=== PATIENT | female | born 1985 | race Hispanic/Latino ===

== ENCOUNTER 2022-05-12 22:05 | Emergency (ER) | payer OTHER ==
--- OUTSIDE RECORDS SUMMARY | 2022-05-12 22:08 | XMS REPORT | Continuity of Care Document ---
:1985 Author Organization [facility] t Address [address] [place] [place] [address] Care Team Providers Name Role Phone Unknown, Physician Primary Care Physician Unavailable LOLITA CORRALES Attending Clinician Unavailable Nedra NULL, Kari Attending Clinician Unavailable LOLITA CORRALES Attending Clinician Unavailable Nancy Hinojosa MA Attending Clinician Unavailable Zenaida Dunbar MA Attending Clinician Unavailable RADIOLOGY Attending Clinician Unavailable ADITYA PATEL Attending Clinician Unavailable LOLITA CORRALES Admitting Clinician Unavailable Payers Payer Name Policy Type Policy Number Effective Date Expiration Date S brittany [facility] [id number] 2021 00:00:00 [facility] [id number] 2020 00:00:00 [employer] O [id number] 2015 2020 00:00:00 00:00:00 Problems This patient has no known problems. Allergies, Adverse Reactions, Alerts Allergy Allergy Status Severity Reaction(s) Onset Inactive Treating Comm ents Source Name Type Date Date Clinician NO KNOWN Drug Active Univers ALLERGIE Class [facility] of [facility] Social History Social Habit Start Date Stop Date Quantity Comments Source History of tobacco Light tobacco [facility] use smoker Exposure to 2022-02-16 2022-02-26 Not sure [facility] SARS-CoV-2 (event) 00:00:00 08:55:00 Tobacco use and 2021-03-20 2021-03-20 User of smokeless [place] [facility] exposure 00:00:00 00:00:00 tobacco Alcohol intake 2021-03-20 2021-03-20 Ex-drinker [facility] 00:00:00 00:00:00 (finding) Sex Ass[birth year] At [birth year] [place] [facility] 00:00:00 00:00:00 Smoking Status Start Date Stop Date Source Light tobacco smoker 2021-03-20 00:00:00 [facility] Medications Ordered Filled Start Stop Current Ordering Indication Dosage Frequency Signature Comments Components Source Medication Medication Date Date Medication? Clinician (SIG) Name Name ondansetron Yes 4mg Q.5D Take 4 mg U T (Zofran) 4 3-03 by mouth 2 [facility]a [facility] MG tablet 00:00: (two) 00 times a day. FOR 5 DAYS ondansetron Yes 4mg Q.5D Take 4 mg U T (Zofran) 4 3-03 by mouth 2 [facility] MG tablet 00:00: (two) 00 times a day. FOR 5 DAYS ondansetron Yes 4mg Q.5D Take 4 mg U T (Zofran) 4 3-03 by mouth 2 [facility]a [facility] MG tablet 00:00: (two) 00 times a day. FOR 5 DAYS ondansetron Yes 4mg Q.5D Take 4 mg U T (Zofran) 4 3-03 by mouth 2 [facility]a lth MG tablet 00:00: (two) 00 times a day. FOR 5 DAYS lubiproston Yes 8ug Q.5D Take 8 mcg UT e (Amitiza) 2-14 by mouth 2 He alth 8 MCG 00:00: (two) capsule 00 times a day. lubiproston 2021-2021- No 8ug Q.5D Take 8 mcg UT e (Amitiza) 2-14 04-21 by mouth 2 H ealth 8 MCG 00:00: 00:00 (two) capsule 00 :00 times a day. ALPRAZolam Yes .5mg Q.5D Take 0.5 UT (Xanax) 0.5 9-29 mg by Health MG tablet 00:00: mouth 2 00 (two) times a day. ALPRAZolam 2021-0 Yes .5mg Q.5D Take 0.5 UT (Xanax) 0.5 9-29 mg by Health MG tablet 00:00: mouth 2 00 (two) times a day. ALPRAZolam 2021-0 Yes .5mg Q.5D Take 0.5 UT (Xanax) 0.5 9-29 mg by Health MG tablet 00:00: mouth 2 00 (two) times a day. ALPRAZolam 2021-0 Yes .5mg Q.5D Take 0.5 UT (Xanax) 0.5 9-29 mg by Health MG tablet 00:00: mouth 2 00 (two) times a day. ALPRAZolam 2021-0 Yes .5mg Q.5D Take 0.5 UT (Xanax) 0.5 9-29 mg by Health MG tablet 00:00: mouth 2 00 (two) times a day. ALPRAZolam 1-0 Yes .5mg Q.5D Take 0.5 UT (Xanax) 0.5 9-29 mg by Health MG tablet 00:00: mouth 2 00 (two) times a day. Linzess 145 2020-0 Yes 1{capsu Take 1 U T MCG capsule 9-20 le} capsule by He alth 00:00: mouth 1 00 (one) time each day before breakfast. 30 MINUTES BEFORE BREAKFAST Linzess 145 1-0 Yes 1{capsu Take 1 U T MCG capsule 9-20 le} capsule by alth 00:00: mouth 1 00 (one) time each day before breakfast. 30 MINUTES BEFORE BREAKFAST Linzess 145 2020-0 Yes 1{capsu Take 1 U T MCG capsule 9-20 le} capsule by He alth 00:00: mouth 1 00 (one) time each day before breakfast. 30 MINUTES BEFORE BREAKFAST Linzess 145 2021-0 2022- No 1{capsu Take 1 UT MCG capsule 9-20 04-21 le} capsule by [facility] 00:00: 00:00 mouth 1 00 :00 (one) time each day before breakfast. 30 MINUTES BEFORE BREAKFAST [place] BLOWER Thyroid 1-0 Yes 15mg Take 15 mg U T 15 MG 8-14 by mouth 1 Health tablet 00:00: (one) time 00 each day in the morning. spironolact 2021-0 Yes 50mg Take 50 mg UT one 8-14 by mouth Health (Aldactone) 00:00: every 50 MG 00 night. tablet [place] BLOWER Thyroid 2021-0 Yes 15mg Take 15 mg U T 15 MG 8-14 by mouth 1 Health tablet 00:00: (one) time 00 each day in the morning. spironolact 2021-0 Yes 50mg Take 50 mg UT one 8-14 by mouth Health (Aldactone) 00:00: every 50 MG 00 night. tablet [place] BLOWER Thyroid 2021-0 Yes 15mg Take 15 mg U T 15 MG 8-14 by mouth 1 Health tablet 00:00: (one) time 00 each day in the morning. spironolact 2021-0 Yes 50mg Take 50 mg UT one 8-14 by mouth Health (Aldactone) 00:00: every 50 MG 00 night. tablet [place]OWER Thyroid 2021-0 Yes 15mg Take 15 mg U T 15 MG 8-14 by mouth 1 Health tablet 00:00: (one) time 00 each day in the morning. spironolact 2021-0 Yes 50mg Take 50 mg UT one 8-14 by mouth Health (Aldactone) 00:00: every 50 MG 00 night. tablet [place]OWER Thyroid 2021-0 Yes 15mg Take 15 mg U T 15 MG 8-14 by mouth 1 Health tablet 00:00: (one) time 00 each day in the morning. spironolact 2021-0 Yes 50mg Take 50 mg UT one 8-14 by mouth Health (Aldactone) 00:00: every 50 MG 00 night. tablet [place]OWER Thyroid 2021-0 Yes 15mg Take 15 mg U T 15 MG 8-14 by mouth 1 Health tablet 00:00: (one) time 00 each day in the morning. spironolact 2021-0 Yes 50mg Take 50 mg UT one 8-14 by mouth Health (Aldactone) 00:00: every 50 MG 00 night. tablet pantoprazol 2021-0 Yes 40mg QD Take 40 mg UT e 7-22 by mouth 1 Health (ProtoNix) 00:00: (one) time 40 MG EC 00 each day. tablet pantoprazol 2021-0 Yes 40mg QD Take 40 mg UT e 7-22 by mouth 1 Health (ProtoNix) 00:00: (one) time 40 MG EC 00 each day. tablet pantoprazol 2021-0 Yes 40mg QD Take 40 mg UT e 7-22 by mouth 1 Health (ProtoNix) 00:00: (one) time 40 MG EC 00 each day. tablet pantoprazol 2020-0 Yes 40mg QD Take 40 mg UT e 7-22 by mouth 1 Health (ProtoNix) 00:00: (one) time 40 MG EC 00 each day. tablet pantoprazol 2020-0 Yes 40mg QD Take 40 mg UT e 7-22 by mouth 1 Health (ProtoNix) 00:00: (one) time 40 MG EC 00 each day. tablet pantoprazol 2020-0 Yes 40mg QD Take 40 mg UT e 7-22 by mouth 1 Health (ProtoNix) 00:00: (one) time 40 MG EC 00 each day. tablet Vital Signs Vital Name Observation Time Observation Value Comments Source Systolic blood pressure 2022-02-26 14:08:00 112 mm[Hg] [facility] Diastolic blood pressure 2022-02-26 14:08:00 72 mm[Hg] [facility] Heart rate 2022-02-26 14:08:00 95 [facility] temperature 2022-02-26 14:08:00 36.39 Ginger [facility] Body height 2022-02-26 14:08:00 160 [facility] weight 2022-02-26 14:08:[facility] 2022-02-26 14:08:00 29.33 [facility] Systolic blood pressure 2021-11-17 14:11:00 109 mm[Hg] [facility] Diastolic blood pressure 2021-11-17 14:11:00 71 mm[Hg] [facility] Heart rate 2021-11-17 14:11:00 53 /min [facility] Body temperature 2021-11-17 14:11:00 36.44 Ginger [facility] Body height 2021-11-17 14:11:00 161.3 cm [facility] Body weight 2021-11-17 14:11:00 88[facility]996 [facility] BMI 2021-11-17 14:11:00 34.21 kg/m2 [facility] Systolic blood pressure 2021-10-02 15:13:00 113 mm[Hg] [facility] Diastolic blood pressure 2021-10-02 15:13:00 75 mm[Hg] [facility] Heart rate 2021-10-02 15:13:00 53 /min [facility] Body temperature 2021-10-02 15:13:00 36.44 Ginger [facility] ealt Body height 2021-10-02 15:13:00 161.3 cm [facility] Body weight 2021-10-02 15:13:00 94.892 kg [facility] BMI 2021-10-02 15:13:00 36.48 kg/m2 [facility] Procedures Procedure Date / Time Performed Performing Clinician [facility] e SURGICAL PATHOLOGY 2021-03-28 16:27:00 Lolita Corrales [facility] Encounters Start End Encounter Admission Attending Care Care Encounter Source Date/Time Date/Time Type Type Clinicians Facility Department ID 2021-08-21 Outpatient ANTONI, [facility] [id number] [place] 11:28:34 [facility] 2021-02-21 Outpatient COWJHOANA, [facility] [id number] [place] 10:46:06 [facility] 2022-05-28 2022-05-28 Outpatient COWLING, [facility] [id number] [place] 09:00:00 09:00:00 [facility] 2022-02-26 2022-02-26 Office Antoni, [facility] 1.2.840.114 [id number] OR 09:00:00 09:22:47 Visit [facility] [id number] He alth [address] 2 [id number] [id number] 2021-11-17 2021-11-17 Office Antoni, [facility] 1.2.840.114 [id number] [place] 09:15:00 09:45:29 Visit [facility] [id number] [facility] [address] 2 [id number] [id number] 2021-10-02 2021-10-02 Office Antoni, [facility] 1.2.840.114 [id number] [place] 10:00:00 10:40:53 Visit [facility] [id number] He al[facility] [address] 2 [id number] [id number] 2021-09-08 2021-09-08 Kari Lopez [facility] 1.2.840.114 [id number] UT 00:00:00 00:00:00 Kari Sneed [id number] [facility] MEDICAL 9.2.7.2.686 [facility] [id number] 2021-08-21 2021-08-21 Office Antoni UTP [facility] 1.2.840.114 [id number] OR 10:45:00 11:27:09 Visit Lolita SE MED [id number] He al[facility] [address] 2 9.2.7.2.686 [id number] 2021-08-13 2021-08-15 Inpatient ANTONI, [facility] [id number] 06:29:00 13:15:00 [facility] 2021-07-28 2021-07-28 Consult Antoni, UTP [facility] 1.2.840.114 [id number] OR 08:30:00 09:08:17 Lolita SE MED [id number] He alth [address] 2 9.2.7.2.686 [id number] 2021-04-30 2021-05-29 Outpatient ANTONI, [facility] RAKESH [id number] MH 00:00:00 23:59:00 [facility] 2021-05-15 2021-05-15 Office Antoni, UTP [facility] 1.2.840.114 [id number] OR 08:30:00 09:00:18 Visit Lolita SE MED [id number] He alth [place] 2 9.2.7.2.686 [id number] 2021-04-22 2021-04-22 EXT [facility] OP [place], EXT [facility] 1.2.840.114 [id number] OR 00:00:00 00:00:00 Lolita LOCATION [id number] H ealth 9.2.7.2.686 [id number] 2021-04-22 2021-04-22 EXT MHH OP [place], EXT [facility] 1.2.840.114 [id number] UT 00:00:00 00:00:00 Lolita LOCATION [id number] H ealth 9.2.7.2.686 [id number] 2021-04-17 2021-04-17 Office Antoni, UTP [facility] 1.2.840.114 [id number] OR 08:33:32 09:20:52 Visit Lolita SE MED [id number] He alth [address] 2 9.2.7.2.686 [id number] 2021-04-14 2021-04-14 Telephone Nancy Hinojosa UTP [facility] 1.2.840.1 14 [id number] UT 00:00:00 00:00:00 Ashish Nancy SE MED [id number] Health PLAZA 2 9.2.7.2.686 [id number] 2021-04-02 2021-04-02 Telephone Zenaida Dunbar UTP [facility] 1.2.84 0.114 [id number] UT 00:00:00 00:00:00 Zenaida Dunbar SE MED [id number] Health PLAZA 2 9.2.7.2.686 [id number] 2021-04-02 2021-04-02 Telephone Zenaida Dunbar UTP [facility] 1.2.84 0.114 [id number] UT 00:00:00 00:00:00 Zenaida Dunbar SE MED [id number] Health PLAZA 2 9.2.7.2.686 [id number] 2021-03-28 2021-03-28 Outpatient ANTONI, [facility] RAKESH [id number] 09:05:00 13:10:00 [facility] 2021-03-28 2021-03-28 EXT MHH OP COWLING, EXT [facility] 1.2.840.114 [id number] OR 10:08:41 12:08:41 LOLITA LOCATION 350.1.13.58 H ealth 9.2.7.2.686 [id number] 2021-03-28 2021-03-28 EXT MHH OP [place], EXT [facility] 1.2.840.114 [id number] OR 10:08:41 12:08:41 Lolita LOCATION [id number] H ealth 9.2.7.2.686 [id number] 2021-03-20 2021-03-20 Office REGAN Corrales [facility] 1.2.840.114 [id number] OR 09:33:40 10:59:58 Visit [facility] 350.1.13.58 Jitendra GUERRERO 2 9.2.7.2.686 [id number] 2021-01-10 2021-01-10 Outpatient R RADIOLOGY [facility] [id number] Univers 00:00:00 00:00:00 ity [facility] 2020-09-20 2020-09-20 Outpatient R JORGE, [facility] [id number] Univers 08:40:00 08:40:00 ADITYA [facility] 2020-01-15 2020-01-15 Outpatient R JORGE, [facility] [id number] Univers 10:20:00 10:20:00 [facility] Results Test Description Test Test Results Result Source Time Comments Comments SURGICAL 2021-03- Diagnosis1. ?Gallbladder, [place] [facility] PATHOLOGY 15 cholecystectomy: -Chronic 16:27:00 cholecystitis and cholelithiasis. 2. ?Liver, wedge biopsy: -Subcapsular liver with mild steatosis, see comment.Chronic cholecystitis, NOSCholelithiasis with cholecystitis, NOSGallbladder, NOSCholecystectomyWedge biopsy of liverLiver, NOSSteatosis [facility]ITALCOMMENTSections show liver parenchyma with mild macrosteatosis (5%). ?There is no significant chronic inflammation within portal tracts. ?There is no lobular inflammation or ballooning degeneration. ?A trichrome stain shows no significant fibrosis. ?A PAS stain is negative for alpha1-antitrypsin globules. ?An iron stain shows no increase in iron deposition. Clinical correlation is recommended. [facility] Source1. ?Gallbladder2. ?Liver biopsy [facility]ITALClinical InformationClinical History: Symptomatic cholelithiasis, elevated liver function testOperative Procedure: Laparoscopic cholecystectomy, liver wedge biopsyOperative Findings: Symptomatic cholelithiasis, elevated liver function tests [facility]OSPITALGross DescriptionSpecimen 1 "gallbladder" consists of a 7.0 x 2.0 cm purple-valle, congested gallbladder. ?The wall is 0.3 cm thick, and the lumen contains a semitranslucent viscous bile with a single 2.5 cm black, multifaceted choleliths. ?Mucosal surface is pink-valle and velvety to trabeculated. ?Wall and cystic duct into 1A. Specimen 2 "liver wedge" consists of a 1.2 x 0.9 x 0.6 cm valle-brown and ragged soft tissue that is bisected and entirely submitted into 2A. ?H&E, iron, PAS-D and trichrome stains ordered.ELY 03/28/2021 13:12 [facility]ITALMicroscopic DescriptionA microscopic examination has been performed and the findings are incorporated in the diagnosis above. The positive and negative controls for all histochemical and immunohistochemical stains, if performed for this case, have been reviewed and, unless otherwise noted, have been found to be appropriate. [facility]OS[facility]ITALNon Clinical [id number], [id number], [id number] x3 Specimen examined at [facility].Final diagnosis rendered at [facility].[id number] [facility], [place], [place] ?[address]. [facility]
[2022-05-12] MEDS ORDERED: PROMETHAZINE INJ 25 MG/ML AMP ONE (23:42)
[2022-05-12] MEDS ORDERED: NA CHLORIDE 0.9% 1,000 ML ONE (23:43)
[2022-05-12] MEDS ORDERED: FAMOTIDINE 20 MG/2 ML VIAL IV ONE (23:43)
[2022-05-12] MEDS ORDERED: ONDANSETRON 4 MG/2 ML VIAL ONE (23:43)
[2022-05-12] MEDS ORDERED: MORPHINE 4 MG/ML SYR ONE (23:43)
[2022-05-13 00:05] LABS: Urine Blood Trace-lysed (Negative); Urine Glucose Negative (Negative); Urine Protein Negative (Negative); Urine Specific Gravity >=1.030 (1.005-1.030); Urine pH 5.5 (5.0-7.0)
[2022-05-13 00:11] LABS: Absolute Lymphocytes (CBC) 1.1 K/uL (0.7-4.9); Hematocrit 43.7 % (36.0-45.0); Lymphocytes % 8.5 % (15.3-44.8); MCV 92.2 fL (80-100); MPV 8.8 fL (7.6-11.3); RBC Red Blood Cell Count 4.74 M/uL (3.86-4.86)
[2022-05-13 00:20] LABS: Calcium Oxalate Crystals- Ur Moderate /HPF (None Seen); Urine Bacteria <20 /HPF (<20); Urine Mucus 4+ /HPF (None Seen); Urine RBC <5 /HPF (None Seen)
[2022-05-13 00:36] LABS: Bilirubin Total 0.5 mg/dL (0.2-1.0); Potassium 3.6 mmol/L (3.5-5.1); Protein, Total 7.8 g/dL (6.4-8.2)
[2022-05-13] MEDS ORDERED: Ringers Lactate 1,000 ML IV ONE (00:48)
[2022-05-13] MEDS ORDERED: LORazepam 2 MG/ML VIAL ONE (00:48)
[2022-05-13 00:50] LABS: Urine Specific Gravity/Preg >1.030 (1.005-1.030)
[2022-05-13] MEDS ORDERED: METOCLOPRAMIDE 10 MG/2mL INJ ONE (02:12)
--- NOTE | 2022-05-13 03:32 | ER ---
Nurse's Notes [facility] Name: Bea Cote Age: 37 yrs Sex: Female : 1985 Arrival Date: 05/12/2022 Time: 22:09 Bed 3 Private MD: Diagnosis: Nausea with vomiting, unspecified;Abdominal pain, unspecified Presentation: 05/12 22:12 Chief complaint: Patient states: "My stomach is hurting so bad. It feels like gas tw5 pains, but in august I had a gastric bypass. The last 5 hours I have been throwing up and the it has not stopped since.". Coronavirus screen: Vaccine status: Patient reports being unvaccinated. Ebola Screen: Patient negative for fever greater than or equal to 101.5 degrees Fahrenheit, and additional compatible Ebola Virus Disease symptoms Patient denies exposure to infectious person. Patient denies travel to an Ebola-affected area in the 21 days before illness onset. Initial Sepsis Screen: Does the patient meet any 2 criteria? No. Patient's initial sepsis screen is negative. Does the patient have a suspected source of infection? Yes: Acute abdominal pain. Risk Assessment: Do you want to hurt yourself or someone else? Patient reports no desire to harm self or others. Onset of symptoms was May 12, 2022. 22:12 Method Of Arrival: Ambulatory tw5 22:12 Acuity: YOANDY 3 tw5 22:15 Chief complaint: Patient states: "I took some Zofran earlier at 6 PM and then again at tw5 8 PM 4 mg. ". Triage Assessment: 22:14 General: Appears uncomfortable, Behavior is cooperative, appropriate for age. Pain: tw5 Complains of pain in epigastric area, right upper quadrant, left upper quadrant, right lower quadrant and left lower quadrant Pain currently is 10 out of 10 on a pain scale. GI: Reports lower abdominal pain, upper abdominal pain, nausea, vomiting. 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 It has been more than one year since last vaccine. - Social history:: Smoking status: Patient denies any tobacco usage or history of. Screenin:15 Abuse screen: Denies threats or abuse. Denies injuries from another. Nutritional tw5 screening: No deficits noted. Tuberculosis screening: No symptoms or risk factors identified. Fall Risk None identified. Assessment: 23:20 General: Appears uncomfortable, ill, Behavior is cooperative, restless. Pain: Complains as6 of pain in abdomen. Neuro: Level of Consciousness is awake, alert, obeys commands, Oriented to person, place, time, situation. Respiratory: Respiratory effort is even, unlabored. GI: Pt is actively vomiting bile, Reports lower abdominal pain, upper abdominal pain, nausea, vomiting. 05/13 02:02 General: pt has had multiple episodes of vomiting. provider has been notified . as6 03:11 General: pt states nausea/vomiting has improved. PO fluids provided. as6 Vital Signs: 05/12 22:12 BP 118 / 64; Pulse 68; Resp 18; Temp 98.3; Pulse Ox 99% ; Weight 69.4 kg; Height 5 ft. tw5 3 in. (160.02 cm); Pain 10/10; 05/13 00:19 BP 135 / 81; Pulse 54; Resp 16 S; Pulse Ox 100% on R/A; as6 02:02 BP 145 / 87; Pulse 44; Resp 19 S; Pulse Ox 99% on R/A; as6 03:12 Pulse 63; Resp 19 S; Temp 98.0(O); Pulse Ox 100% on R/A; as6 05/12 22:12 Body Mass Index 27.10 (69.40 kg, 160.02 cm) tw5 ED Course: 05/12 22:09 Patient arrived in ED. ja2 22:14 Triage completed. tw5 22:14 Arm band placed on. tw5 22:33 Mike Walter PA is PHCP. cp 22:33 Mike Cary MD is Attending Physician. cp 23:02 Millie Wylie, TENNILLE is Primary Nurse. aa9 23:30 Inserted saline lock: 20 gauge in right antecubital area, using aseptic technique. as6 Blood collected. 05/13 00:21 Placed in gown. Bed in low position. Call light in reach. Side rails up X2. as6 01:10 CT Abd/Pelvis - PO and IV Contrast In Process Unspecified. EDMS 04:19 No provider procedures requiring assistance completed. IV discontinued, intact, as6 bleeding controlled, No redness/swelling at site. Pressure dressing applied. Administered Medications: 00:07 Drug: NS 0.9% 1000 ml Route: IV; Rate: 1 bolus; Site: right antecubital; as6 03:44 Follow up: Response: No adverse reaction; IV Status: Completed infusion; IV Intake: as6 1000ml 00:07 Drug: Pepcid (famotidine) 20 mg Route: IVP; Site: right antecubital; as6 03:43 Follow up: Response: No adverse reaction as6 00:07 Drug: Zofran (Ondansetron) 4 mg Route: IVP; Site: right antecubital; as6 03:43 Follow up: Response: No adverse reaction as6 00:07 Drug: morphine 4 mg Route: IVP; Infused Over: 4 mins; Site: right antecubital; as6 03:44 Follow up: Response: No adverse reaction as6 00:07 Drug: Phenergan (promethazine) 25 mg Route: IM; Site: right deltoid; as6 03:44 Follow up: Response: No adverse reaction as6 00:44 CANCELLED (Physician Discretion): NS 0.9% 1000 ml IV at 1 bolus Per protocol; 1000 mL cp bolus 00:50 CANCELLED (Other Intervention Used): Zofran (Ondansetron) 4 mg IVP once; over 2 minutes as6 00:50 Drug: Ativan (LORazepam) 0.5 mg Route: IVP; Site: right antecubital; as6 03:44 Follow up: Response: No adverse reaction as6 01:18 Drug: Lactated Ringers Solution 1000 ml Route: IV; Rate: 150 ml/hr; Site: right as6 antecubital; 03:45 Follow up: Response: No adverse reaction; IV Status: Completed infusion; IV Intake: as6 250ml 02:13 Drug: Reglan (metoCLOPramide) 10 mg Route: IVP; Site: right antecubital; as6 03:45 Follow up: Response: No adverse reaction as6 03:43 Drug: Dicyclomine 20 mg Route: IM; Site: left ventrogluteal; as6 03:45 Follow up: Response: No adverse reaction as6 Medication: 04:19 VIS not applicable for this client. as6 Intake: 03:44 IV: 1000ml; Total: 1000ml. as6 03:45 IV: 250ml; Total: 1250ml. as6 Outcome: 03:32 Discharge ordered by . cp 04:19 Discharged to home ambulatory, with significant other. as6 04:19 Condition: stable 04:19 Discharge instructions given to patient, significant other, Instructed on discharge instructions, follow up and referral plans. medication usage, Demonstrated understanding of instructions, follow-up care, medications, Prescriptions given X 3. 04:19 Patient left the ED. as6 Signatures: Dispatcher [employer] EDMS Mike Walter PA PA cp Alexander, Jessica ja2 Wood, Tiffany tw5 Nicolas Perla RN RN as6 Millie Wylie RN RN aa9 Corrections: (The following items were deleted from the chart) 05/12 22:16 22:15 Chief complaint: Patient states: "I took some Phenergan earlier at 6 PM and then tw5 again at 8 PM 4 mg. " tw5
--- NOTE | 2022-05-13 03:32 | EDPHYS ---
Physician Documentation [facility] Name: Bea Cote Age: 37 yrs Sex: Female : 1985 Arrival Date: 05/12/2022 Time: 22:09 Bed 3 Private MD: VALERI Physician Mike Cary HPI: 05/12 23:20 This 37 yrs old Female presents to ER via Ambulatory with complaints of cp Vomiting, Headache, Abdominal Pain. 23:20 The patient presents to the emergency department with nausea, with "dry heaves", cp vomiting, that is continuous, abdominal pain, of the abdomen diffusely. Onset: The symptoms/episode began/occurred this morning, and became worse today, at about 1700. Possible causes: unknown. Associated signs and symptoms: Pertinent positives: abdominal pain, anorexia, Pertinent negatives: diarrhea, fever, GI bleeding. Severity of symptoms: in the emergency department the symptoms are unchanged despite home interventions. Patient reports having gastric bypass surgery done in August 2021 with no complications. 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 It has been more than one year since last vaccine. - Social history:: Smoking status: Patient denies any tobacco usage or history of. ROS: 23:25 Constitutional: Positive for poor PO intake, Negative for body aches, chills, fever. cp 23:25 Eyes: Negative for injury, pain, redness, and discharge. cp 23:25 ENT: Negative for drainage from ear(s), ear pain, sore throat, difficulty swallowing, difficulty handling secretions. 23:25 Cardiovascular: Negative for chest pain, edema, palpitations. 23:25 Respiratory: Negative for cough, shortness of breath, wheezing. 23:25 Abdomen/GI: Positive for abdominal pain, nausea and vomiting, anorexia, Negative for diarrhea, constipation, hematemesis. 23:25 Back: Negative for radiated pain. 23:25 : Negative for urinary symptoms. 23:25 Neuro: Positive for headache, tingling, of the right foot, left foot and left arm, Negative for altered mental status, weakness. 23:25 All other systems are negative. Exam: 23:30 Constitutional: The patient appears in no acute distress, alert, awake, non-toxic, well cp developed, well nourished, uncomfortable. 23:30 Head/Face: Normocephalic, atraumatic. cp 23:30 Eyes: Periorbital structures: appear normal, Conjunctiva: normal, no exudate, no injection, Sclera: no appreciated abnormality, Lids and lashes: appear normal, bilaterally. 23:30 ENT: External ear(s): are unremarkable, Nose: is normal, Mouth: Lips: moist, Oral mucosa: pink and intact, moist, Posterior pharynx: Airway: no evidence of obstruction, patent, swelling, is not appreciated, erythema, is not appreciated, exudate, is not appreciated. 23:30 Neck: ROM/movement: is normal, is supple, without pain, no range of motions limitations, no nuchal rigidity. 23:30 Chest/axilla: Inspection: normal. 23:30 Cardiovascular: Rate: normal, Rhythm: regular. 23:30 Respiratory: the patient does not display signs of respiratory distress, Respirations: normal, no use of accessory muscles, no retractions, labored breathing, is not present, Breath sounds: are clear throughout, no decreased breath sounds, no stridor, no wheezing. 23:30 Abdomen/GI: Inspection: abdomen appears normal, Bowel sounds: active, all quadrants, Palpation: soft, in all quadrants, severe abdominal tenderness, in all quadrants, rebound tenderness, is not appreciated, involuntary guarding, is not appreciated. 23:30 Back: pain, is absent, ROM is normal. 23:30 Neuro: Orientation: to person, place \\T\\ time. Mentation: is normal, Motor: no acute changes, strength is normal, Sensation: no obvious gross deficits. Vital Signs: 22:12 BP 118 / 64; Pulse 68; Resp 18; Temp 98.3; Pulse Ox 99% ; Weight 69.4 kg; Height 5 ft. tw5 3 in. (160.02 cm); Pain 10/10; 11 00:19 BP 135 / 81; Pulse 54; Resp 16 S; Pulse Ox 100% on R/A; as6 02:02 BP 145 / 87; Pulse 44; Resp 19 S; Pulse Ox 99% on R/A; as6 03:12 Pulse 63; Resp 19 S; Temp 98.0(O); Pulse Ox 100% on R/A; as6 05/12 22:12 Body Mass Index 27.10 (69.40 kg, 160.02 cm) tw5 MDM: 05/12 22:35 Patient medically screened. 05/13 03:30 Data reviewed: vital signs, nurses notes, lab test result(s), radiologic studies, CT cp scan. 03:30 Counseling: I had a detailed discussion with the patient and/or guardian regarding: the cp historical points, exam findings, and any diagnostic results supporting the discharge/admit diagnosis, lab results, radiology results, to return to the emergency department if symptoms worsen or persist or if there are any questions or concerns that arise at home. Response to treatment: the patient's symptoms have markedly improved after treatment. Special discussion: Based on the patient's Hx, exam, and Dx evaluation, there is no indication for emergent surgery or inpatient Tx. It is understood by the patient/guardian that if the Sx's persist or worsen they need to return immediately for re-evaluation. 05/12 23:10 Order name: CBC with Diff; Complete Time: 00:43 cp 05/13 02:40 Interpretation: Normal except: WBC 13.00; JH% 87.9; LYM% 8.5; MN% 3.0; NEUT A 11.5. cp 05/12 23:10 Order name: CMP; Complete Time: 00:43 cp 05/13 03:41 Interpretation: Normal except: CO2 18; GLUC 130; GFR 83; GLOB 3.8. cp 05/12 23:10 Order name: Lipase; Complete Time: 00:43 cp 05/12 23:10 Order name: Urine Microscopic Only; Complete Time: 00:43 cp 05/13 03:41 Interpretation: Normal except: MUCUS 4+; CAOX Cx Moderate; Reviewed. 05/13 00:05 Order name: Urine Dipstick-Ancillary; Complete Time: 00:43 EDMS 05/13 00:43 Interpretation: Normal except: UKET 4+; UBLD Trace-lysed. 05/13 00:08 Order name: Urine --Ancillary (enter results); Complete Time: 02:40 mw2 05/12 23:37 Order name: CT Abd/Pelvis - PO and IV Contrast 05/13 00:09 Order name: Urine Dipstick-Ancillary EDMS 05/13 00:38 Order name: CREATININE WHOLE BLOOD; Complete Time: 00:43 EDMS 05/12 23:10 Order name: IV Saline Lock; Complete Time: 00:06 cp 05/12 23:10 Order name: Labs collected and sent; Complete Time: 00:06 cp 05/12 23:10 Order name: Urine Dipstick-Ancillary (obtain specimen); Complete Time: 00:06 cp 05/12 23:10 Order name: Urine Test (obtain specimen); Complete Time: 00:06 cp Administered Medications: 00:07 Drug: NS 0.9% 1000 ml Route: IV; Rate: 1 bolus; Site: right antecubital; as6 03:44 Follow up: Response: No adverse reaction; IV Status: Completed infusion; IV Intake: as6 1000ml 00:07 Drug: Pepcid (famotidine) 20 mg Route: IVP; Site: right antecubital; as6 03:43 Follow up: Response: No adverse reaction as6 00:07 Drug: Zofran (Ondansetron) 4 mg Route: IVP; Site: right antecubital; as6 03:43 Follow up: Response: No adverse reaction as6 00:07 Drug: morphine 4 mg Route: IVP; Infused Over: 4 mins; Site: right antecubital; as6 03:44 Follow up: Response: No adverse reaction as6 00:07 Drug: Phenergan (promethazine) 25 mg Route: IM; Site: right deltoid; as6 03:44 Follow up: Response: No adverse reaction as6 00:44 CANCELLED (Physician Discretion): NS 0.9% 1000 ml IV at 1 bolus Per protocol; 1000 mL cp bolus 00:50 CANCELLED (Other Intervention Used): Zofran (Ondansetron) 4 mg IVP once; over 2 minutes as6 00:50 Drug: Ativan (LORazepam) 0.5 mg Route: IVP; Site: right antecubital; as6 03:44 Follow up: Response: No adverse reaction as6 01:18 Drug: Lactated Ringers Solution 1000 ml Route: IV; Rate: 150 ml/hr; Site: right as6 antecubital; 03:45 Follow up: Response: No adverse reaction; IV Status: Completed infusion; IV Intake: as6 250ml 02:13 Drug: Reglan (metoCLOPramide) 10 mg Route: IVP; Site: right antecubital; as6 03:45 Follow up: Response: No adverse reaction as6 03:43 Drug: Dicyclomine 20 mg Route: IM; Site: left ventrogluteal; as6 03:45 Follow up: Response: No adverse reaction as6 Disposition Summary: 05/13/22 03:32 Discharge Ordered Location: Home cp Problem: new cp Symptoms: have improved cp Condition: Stable cp Diagnosis - Nausea with vomiting, unspecified cp - Abdominal pain, unspecified cp Followup: cp - With: Private Physician - When: 2 - 3 days - Reason: Recheck today's complaints Discharge Instructions: - Discharge Summary Sheet cp - Abdominal Pain, Adult cp - Nausea and Vomiting, Adult cp - Form - Excuse from Work, School, or Physical Activity cp Forms: - Medication Reconciliation Form cp - Thank You Letter cp - Antibiotic Education cp - Prescription Opioid Use cp Prescriptions: - metoclopramide HCl 10 mg Oral tablet,disintegrating - take 1 tablet by ORAL route every 6 hours As needed; 20 tablet; Refills: 0, cp Product Selection Permitted - promethazine 25 mg Rectal suppository - insert 1 suppository by RECTAL route every 6 hours; 20 suppository; Refills: 0, cp Product Selection Permitted - dicyclomine 20 mg Oral Tablet - take 1 tablet by ORAL route every 6 hours As needed; 20 tablet; Refills: 0, cp Product Selection Permitted Addendum: 05/17/2022 07:51 Co-signature as Attending Physician, Mike Cary MD I agree with the assessment and c jovel plan of care. Signatures: Dispatcher [employer] [facility] Mike Cary MD MD cha Page, Corey, PA PA Abena Lynch tw5 Nicolas Perla RN RN as6 Corrections: (The following items were deleted from the chart) 05/13 00:44 00:44 NS 0.9% 1000 ml IV at 1 bolus Per protocol; 1000 mL bolus ordered. cp cp 00:50 00:43 Zofran (Ondansetron) 4 mg IVP once; over 2 minutes ordered. cp as6 03:41 03:41 Normal except: CO2 18; GLUC 130; GFR 83. cp cp
[2022-05-13] MEDS ORDERED: DICYCLOMINE HCL 20 MG/2 ML AMP IM ONE (03:41)
[2022-05-13 04:35] VITALS: BP 145/87
[2022-05-13 04:36] VITALS: TEMP 98; O2SAT 100
--- NOTE | 2022-05-13 15:32 | RAD REPORT ---
EXAM DESCRIPTION: CT - Abdomen Pelvis W Contrast - 05/13/2022 6:44 am CLINICAL HISTORY: The patient is 37 years old and is Female; abdomen pain, n/v TECHNIQUE: Axial computed tomography images of the abdomen and pelvis with intravenous contrast. S agittal and coronal reformatted images were created and reviewed. This CT exam was performed using one or more of the following dose reduction techniques: automated exposure control, adjustment of t he mA and/or kV according to patient size, and/or use of iterative reconstruction technique. COMPARISON: CT of the abdomen and pelvis June 07, 2021 FINDINGS: LUNG BASES: Unremarkable. No mass. No consolidation. ABDOMEN: LIVER: Unremarkable. No mass. GALLBLADDER AND BILE DUCTS: Surgical clips are present in the right upper quadrant, consistent wi th previous cholecystectomy. PANCREAS: No ductal dilation. No mass. SPLEEN: Unremarkable. ADRENALS: Unremarkable. No mass. KIDNEYS AND URETERS: Unremarkable. The kidneys enhance symmetrically. No obstructing renal or ure teral calculus is seen. No hydronephrosis or hydroureter. No perinephric fluid or stranding. STOMACH AND BOWEL: Postsurgical change consistent with a gastric bypass is noted. The small bowel is relatively normal in caliber. A few small bowel loops are fluid-filled. Stool is noted througho ut the colon. There is no evidence of bowel obstruction. PELVIS: APPENDIX: The appendix is normal in caliber without surrounding inflammation. BLADDER: Unremarkable. No mass. REPRODUCTIVE: A 1.7 cm left ovarian cyst is present. No follow-up imaging is recommended. The cowlitz alberto is unremarkable. A 2 cm right ovarian cyst is present. No follow-up imaging is recommended. ABDOMEN and PELVIS: INTRAPERITONEAL SPACE: Trace free fluid is present within the pelvis which is likely physiologic. No free air. BONES/JOINTS: No acute fracture. SOFT TISSUES: A small fat-containing umbilical hernia is present. VASCULATURE: Unremarkable. No abdominal aortic aneurysm. LYMPH NODES: Unremarkable. No enlarged lymph nodes. IMPRESSION: No acute findings on this contrasted CT of the abdomen and pelvis to explain the patient 's symptoms. Electronically signed by: Latha Enamorado MD 05/13/2022 1:50 AM RENTAL REPRESENTATIVE Due to temporary technical issues with the PACS/Fluency reporting system, reports are being signed by the in house radiologists without review as a courtesy to insure prompt reporting. The interpreting radiologist is fully responsible for the content of the report.
--- NOTE | 2022-05-13 16:24 | EKG ---
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
== END 2022-05-13 04:19 | disposition home or self-care (01) ==
LOC: ER 22:05
DX: R11.2 Nausea with vomiting, unspecified (principal); R10.9 Unspecified abdominal pain
CPT/HCPCS: 96361; 93005; 85025; 36415; 81025; 82565; 81003; 81015; 83690; 80053; 74177; 96375; 96372; 96374; 99284; Q9967; J2765; J2550; J0500; J7120; J7030; J2405